=== PATIENT | female | born 1990 | race Caucasian/White ===

== ENCOUNTER 2021-02-20 20:03 | Emergency (ER) | payer SELFPAY ==
[~2021-02-20] VITALS: Ht 167.6 cm; Wt 73.0 kg
[2021-02-20 20:07] VITALS: BP 109/88
[2021-02-20] MEDS ORDERED: SODIUM CHLORIDE 0.9% 1,000 ML IV ONE (21:00)
== END 2021-02-20 21:15 | disposition left against medical advice (07) ==
LOC: ER 20:03
DX: R55 Syncope and collapse (principal)
CPT/HCPCS: 93005; 99283; J7030